=== PATIENT | female | born 1940 | race Caucasian/White ===

== ENCOUNTER → 2016-06-14 | Outpatient (CLI) | payer MEDICARE, OTHER ==
[2014-07-18 10:13] VITALS: BP 143/65
[~2016-06-14] MED LIST: ACET325T9 PO; AMLO10TA2 PO; BISA10SU55 RC; CALC600T4 PO; CELE200C PO; CHOL10002 PO; DOCU100C5 PO; FEXO180T81 PO; FLUT16SP NS; MULT-246 PO; OMEP20TA63 PO; OXYB5TAB7 PO; PROP150T2 PO; SIMV10TA3 PO; VENL75TA PO; VITA1000 PO; VITA1TAB19 PO
--- NOTE | 2016-06-14 14:37 | CARD ---
APPROVED REPORT EXAM: Two-dimensional and M-mode echocardiogram with Doppler and color Doppler. Other Information Quality : Good INDICATION SVT 2D DIMENSIONS RVDd2.1 (2.9-3.5cm)Left Atrium(2D)3.3 (1.6-4.0cm) IVSd0.7 (0.7-1.1cm)Aortic Root(2D)3.1 (2.0-3.7cm) LVDd4.8 (3.9-5.9cm)LVOT Diameter2.0 (1.8-2.4cm) PWd0.8 (0.7-1.1cm)LVDs2.3 (2.5-4.0cm) FS (%) 30.0 %SV88.2 ml LVEF(%)60.0 (>50%) Aortic Valve AoV Peak Cooper.111.5cm/sAoV VTI19.5cm AO Peak GR.5.0mmHgLVOT Peak Cooper.116.5cm/s AO Mean GR.3mmHgAVA (VMAX)3.24cm2 MARTÍN (VTI)3.30cm2 Mitral Valve MV E Olzaxhfz83.5cm/sMV DECEL ZEGH965wy MV A Nglhzcvb54.4cm/sE/A Ratio0.8 Tricuspid Valve TR P. Drtyxfqf988au/sRAP RIJDDHWV9lvKm TR Peak Gr.61pgVpATYM19tcLm Pulmonary Vein S1 Fyomyivb15.1cm/sD2 Kwndjpew71.2cm/s PVa yngtolit85bdvq LEFT VENTRICLE The left ventricle is normal size. There is normal left ventricular wall thickness. The left ventricu lar systolic function is normal and the ejection fraction is within normal range. The Ejection Fracti on is 60-65%. There is normal LV segmental wall motion. Transmitral Doppler flow pattern is Grade I-a bnormal relaxation pattern. RIGHT VENTRICLE The right ventricle is normal size. The right ventricular systolic function is normal. ATRIA The left atrium size is normal. The right atrium size is normal. The interatrial septum is intact wit h no evidence for an atrial septal defect or patent foramen ovale as noted on 2-D or Doppler imaging. AORTIC VALVE The aortic valve is calcified but opens well. Doppler and Color Flow revealed no significant aortic r egurgitation. There is no significant aortic valvular stenosis. MITRAL VALVE The mitral valve is thickened but opens well. There is no evidence of mitral valve prolapse. There is no mitral valve stenosis. Doppler and Color Flow revealed no mitral valve regurgitation noted. TRICUSPID VALVE The tricuspid valve is normal in structure and function. Doppler and Color Flow revealed trace tricus pid regurgitation. The PA pressure was estimated at 21 mmHg. There is no pulmonary hypertension. Ther e is no tricuspid valve stenosis. PULMONIC VALVE The pulmonary valve is normal in structure and function. Doppler and Color Flow revealed trace pulmon ic valvular regurgitation. There is no pulmonic valvular stenosis. GREAT VESSELS The aortic root is normal in size. The ascending aorta is normal in size. The IVC is normal in size a nd collapses >50% with inspiration. PERICARDIAL EFFUSION There is no evidence of significant pericardial effusion. Critical Notification Critical Value: No <Conclusion> The left ventricular systolic function is normal and the ejection fraction is within normal range. Th e Ejection Fraction is 60-65%. There is normal LV segmental wall motion.
== END | disposition home or self-care (01) ==
LOC: ECHO 09:35
PROVIDERS: ATTEND Internal Medicine Cardiovascular Disease
DX: I47.1 Supraventricular tachycardia (principal); I37.1 Nonrheumatic pulmonary valve insufficiency; I07.1 Rheumatic tricuspid insufficiency
CPT/HCPCS: 93306

== ENCOUNTER → 2017-01-23 | Outpatient (CLI) | payer MEDICARE, OTHER ==
[2014-07-18 10:13] VITALS: BP 143/65
[~2017-01-23] MED LIST changes: +DOCU100C28 PO; -DOCU100C5 PO
--- NOTE | 2017-01-23 15:13 | RAD ---
ATE: 01/23/2017 EXAM: MAMMO BELLA SCREENING BILATERAL Bilateral digital screening mammography to include digital breast tomosynthesis (3D mammography) HISTORY: Screening study. COMPARISON: Comparison studies are dated 01/25/2016 and 01/15/2016. This study was interpreted with the benefit of Computerized Aided Detection (CAD). FINDINGS: Digital MLO and CC mammograms of both breasts were obtained. Additionally digital breast tomosynthesis (3D mammography) images of both breasts in the MLO and CC projections were performed. Comparison studies are dated 01/25/2016 and 01/15/2016. The breast parenchyma is heterogeneously dense which can obscure a lesion on mammography (breast density code C). No spiculated mass is seen. No malignant appearing calcification or area of architectural distortion is noted. Benign-appearing calcifications are seen scattered throughout both breasts. Digital breast tomosynthesis images demonstrate no spiculated mass or malignant appearing calcification. Since the previous examination there has been no significant interval change. IMPRESSION: First category 1, negative. There is no mammographic evidence of malignancy. Routine yearly screening mammography is recommended for follow-up. BI-RADS CATEGORY: 1 NEGATIVE RECOMMENDED FOLLOW-UP: 12M 12 MONTH FOLLOW-UP PQRS compliance statement: Patient information was entered into a reminder system with a target due date 01/23/2018 for the next mammogram. Mammography is a sensitive method for finding small breast cancers, but it does not detect them all and is not a substitute for careful clinical examination. A negative mammogram does not negate a clinically suspicious finding and should not result in delay in biopsying a clinically suspicious abnormality. "Our facility is accredited by the [employer] Mammography [employer]."
== END | disposition home or self-care (01) ==
LOC: KCIC MAMMO 10:42
PROVIDERS: ATTEND Family Medicine
DX: Z12.31 Encounter for screening mammogram for malignant neoplasm of breast (principal)
CPT/HCPCS: 77063; G0202; 77067

== ENCOUNTER → 2018-02-06 | Outpatient (CLI) | payer MEDICARE, OTHER ==
[2014-07-18 10:13] VITALS: BP 143/65
[~2018-02-06] MED LIST changes: -AMLO10TA2 PO; +AMLO10TA6 PO
--- NOTE | 2018-02-06 17:20 | KCIC ---
EXAM: Bilateral digital screening mammogram with tomosynthesis. HISTORY: 77-year-old female presents for screening mammography. TECHNIQUE: Full-field digital craniocaudal and mediolateral oblique 2D and 3D tomosynthesis images of both breasts are obtained for evaluation. Computer aided detection with Vend[employer] software version 9.3 was applied. COMPARISON: 01/25/2016 BREAST PARENCHYMAL DENSITY: Level C - Heterogeneously dense. FINDINGS: There is no new suspicious mass, microcalcification or region of architectural distortion. IMPRESSION: BI-RADS Category 2: Benign finding(s). RECOMMENDATION: Annual mammography is recommended. If your mammogram demonstrates that you have dense breast tissue, which could hide abnormalities, and if you have other risk factors for breast cancer that have been identified, you might benefit from supplemental screening tests that may be suggested by your ordering physician. Dense breast tissue, in and of itself, is a relatively common condition. This information is not provided to cause undue concern, but rather to raise your awareness and to promote discussion with your physician regarding the presence of other risk factors, in addition to dense breast tissue. A report of your mammography results will be sent to you and your physician. You should contact your physician if you have any questions or concerns regarding this report. Mammography is a sensitive method for finding small breast cancers, but it does not detect them all and is not a substitute for careful clinical examination. A negative mammogram does not negate a clinically suspicious finding and should not result in delay in biopsying a clinically suspicious abnormality. PQRS compliance statement - Patient information was entered into a reminder system with a target due date for the next mammogram. "Our facility is accredited by the [employer] Mammography [employer]." Electronically signed by: Marilyn Anderson MD (02/06/2018 5:17 PM) [facility]
== END | disposition home or self-care (01) ==
LOC: KCIC MAMMO 13:48
PROVIDERS: ATTEND Family Medicine
DX: Z12.31 Encounter for screening mammogram for malignant neoplasm of breast (principal); I10 Essential (primary) hypertension; E78.5 Hyperlipidemia, unspecified; Z80.0 Family history of malignant neoplasm of digestive organs; K21.9 Gastro-esophageal reflux disease without esophagitis; F32.9 Major depressive disorder, single episode, unspecified; Z88.6 Allergy status to analgesic agent; Z90.89 Acquired absence of other organs
CPT/HCPCS: 77063; 77067

== ENCOUNTER → 2018-03-12 | Outpatient (CLI) | payer MEDICARE, OTHER ==
[2014-07-18 10:13] VITALS: BP 143/65
--- NOTE | 2018-03-12 12:51 | RAD ---
MR#: [id number] Date of Study: 03/12/2018 Ordering Physician: TANNA CASTRO, Referring Physician: [place] GAY Tech: BRIANA Gerardo ARRT (José Miguel) (N) APPROVED REPORT Test Type: Exercise Stress Nurse/Tech: Anisha Christian RN Test Indications: Atypical chest pain Cardiac History: Family history,, Hypertension Medications: See Electronic Medical Record Medical History: See Electronic Medical Record Resting ECG: SB Resting Heart Rate: 54 bpm Resting Blood Pressure: 134/63mmHg Pretest Chest Pain: No chest pain Nurse/Tech Notes S1,S2 and lungs are clear to auscultation. Consent: The procedure was explained to the patient in lay terms. Informed consent was witnessed. Ash eout was entered into [employer]. History and Stress Test performed by BRIANA Gerardo ARRT (R) (N) Stress Symptoms Fatigue POST EXERCISE Reason for Termination: Reached target heart rate, Fatigue Target HR: Yes Max HR: 242 bpm 200% of Maximum Predicted HR: 242 bpm Exercise duration: 8:41 min:sec, 3 Stage Exercise capacity: 10.0METs Max Blood Pressure: 141/54mmHg Blood Pressure response to exercise: Normal blood pressure response during stress. Heart Rate response to exercise: WNL Chest Pain: No. Arrhythmia: No. ST Change: Yes. elevation in aVR and V1, and depression in II and III during exercise INTERPRETATION Stress EKG Conclusion: Baseline EKG showed sinus rhythm. ST depression and T wave inversion inferior leads at peak stress suspicious for ischemia. No arrhythmias. Imaging Protocol IMAGE PROTOCOL: Rest Tc-99m/stress Tc-99m 1 day Rest: Stress: Viability: Radiopharm.Tc99m MngybzfflFs88v Sestamibi Dose11.5mCi 33.2mCi Img Date 03/12/2018 03/12/2018 Inj-Img Mbdg49oyg. 60min. Rest Admin Site:IV - Right AntecubitalAdministrator:BRIANA Gerardo ARRT (José Miguel)(N) Stress Admin Site: IV - Right AntecubitalAdministrator: Marilyn Caputo, RT (R)(N) STRESS DATA End Diast. Vol.29.0mlAv. Heart Rate73.0bpm End Syst. Vol.6.0mlCO Index BSA1.7L/min Myocardial Mass66.0gEject. Wiejxmgv23.0% Stress Rates Pk. Fill Rate3.60EDV/secLVtime Pk. Fill 275.04msec Pk. Empty Rate5.39ESV/secLVtime Pk. Jyngf049.56msec /3 Pk. Fill0.04EDV/sec Stress Scores Regional WT0.00Summed WT0.00 Regional WM0.00Summed WM15.00 Study quality was good. Left Ventricular size was Normal at Rest and Stress. Lung uptake was Normal. Left Ventricular ejection fraction is 79%. The rest and stress images show normal perfusion, normal contraction and thickening. LV Perf. Quant 17 Seg. SSS0.00 17 Seg. SRS0.00 17 Seg. SDS0.00 Stress Defect Extent (% LAD)0.00Rest Defect Extent (% LAD)0.00Rev. Defect Extent (% LAD)0.00 Stress Defect Extent (% LCX) 0.00Rest Defect Extent (% LCX)0.00Rev. Defect Extent (% LCX)0.00 Stress Defect Extent (% RCA)0.00Rest Defect Extent (% RCA)0.00Rev. Defect Extent (% RCA)0.00 Stress Defect Extent (% KERRI)0.00Rest Defect Extent (% KERRI)0.00Rev. Defect Extent (% KERRI)0.00 Conclusion 1. Treadmill exercise cardioisotope stress test did not show any evidence of ischemia or infarct. 2. Normal left ventricular systolic function with ejection fraction calculated at 79%. 3. Low risk for cardiac events. Signed by : Matthew Saini, Electronically Approved : 03/12/2018 12:50:09
== END | disposition home or self-care (01) ==
LOC: NM 07:48
PROVIDERS: ATTEND Internal Medicine Cardiovascular Disease
DX: R07.89 Other chest pain (principal); Z82.49 Family history of ischemic heart disease and other diseases of the circulatory system
CPT/HCPCS: 78452; 93017; 96374; 96376; A9500

== ENCOUNTER → 2018-08-13 | Outpatient (CLI) | payer MEDICARE, OTHER ==
[2014-07-18 10:13] VITALS: BP 143/65
[~2018-08-13] MED LIST changes: -AMLO10TA6 PO; +AMLO10TA8 PO
--- NOTE | 2018-08-13 10:42 | RAD ---
MR#: [id number] Date of Study: 08/13/2018 Ordering Physician: TANNA CASTRO, Referring Physician: TANNA CASTRO, Tech: DANYEL Rodríguez, RDMS, RTR APPROVED REPORT Patient Location: OUT-PATIENT Laterality:Bilateral Indications CVA/TIA: Risk Factors Hypertension: rt leg weakness, vision changes Doppler Spectral Velocity Analysis Right Left pCCA 120/21 cm/spCCA 90/19 cm/s mCCA 119/25 cm/smCCA 90/17 cm/s dCCA 72/15 cm/sdCCA 81/19 cm/s ECA 79/ cm/sECA 71/ cm/s pICA 50/10 cm/spICA 61/14 cm/s Nacho 67/18 cm/smICA 50/13 cm/s dICA 57/17 cm/sdICA 118/30 cm/s ICA/CCA 0.56ICA/CCA 1.31 Findings Grayscale images of the bilateral common carotid, external and internal carotid vessels reveal minima l intimal hyperplasia. Spectral waveforms and color Doppler of the bilateral internal carotid vessels are overall suggestive of 0 to less than 50% stenosis based on velocity criteria. No focal obstruction is noted. The bilateral vertebral velocities are antegrade. Critical Notification Critical Value: No <Conclusion> No significant carotid occlusive disease. Signed by : Tanna Castro, Electronically Approved : 08/13/2018 10:41:37
== END | disposition home or self-care (01) ==
LOC: US 07:50
PROVIDERS: ATTEND Internal Medicine Cardiovascular Disease
DX: G45.9 Transient cerebral ischemic attack, unspecified (principal); I10 Essential (primary) hypertension; R53.1 Weakness
CPT/HCPCS: 93880

== ENCOUNTER → 2018-09-20 | Outpatient (CLI) | payer MEDICARE, OTHER ==
[2014-07-18 10:13] VITALS: BP 143/65
--- NOTE | 2018-09-20 16:21 | KCIC ---
MRI of the brain without contrast 09/20/2018 Clinical History: TIA. Near syncopal episode with acute right leg heaviness in June. Technique: Unenhanced T1-weighted sagittal and axial, T2-weighted axial and coronal and FLAIR, gradient echo and diffusion-weighted axial images of the brain were obtained. Findings: No previous imaging studies are available for comparison. There is generalized parenchymal atrophy. Patchy, confluent and multiple small focal areas of increased signal intensity are seen within the periventricular and subcortical white matter of both cerebral hemispheres along with the balta on the FLAIR and T2-weighted images consistent with areas of small vessel ischemic disease. A 4 mm old area of infarction is seen involving the left cerebellar hemisphere. No acute parenchymal abnormality is seen. No extra-axial fluid collection is seen. There is no MRI evidence of acute ischemia/infarction. Mild mucosal thickening in seen scattered throughout the paranasal sinuses. There are minimal bilateral mastoid effusions. Normal flow voids are seen within the major vascular structures surrounding the brain parenchyma. Impression: No acute parenchymal abnormality is seen. Electronically signed by: Ranjit Nash MD (09/20/2018 4:18 PM) [facility]
== END | disposition home or self-care (01) ==
LOC: KCIC MRI 09:10
PROVIDERS: ATTEND Psychiatry & Neurology Neurology with Special Qualifications in Child Neurology
DX: G45.9 Transient cerebral ischemic attack, unspecified (principal)
CPT/HCPCS: 70551

== ENCOUNTER → 2018-10-08 | Outpatient (CLI) | payer MEDICARE, OTHER ==
[2014-07-18 10:13] VITALS: BP 143/65
--- NOTE | 2018-10-08 15:35 | CARD ---
MR#: [id number] Date of Study: 10/08/2018 Ordering Physician: HERMAN COTTO, Referring Physician: HERMAN COTTO, Tech: Lucero Akins RDCS APPROVED REPORT EXAM: Two-dimensional and M-mode echocardiogram with Doppler and color Doppler. Other Information Quality : Good INDICATION CVA/TIA 2D DIMENSIONS RVDd1.9 (2.9-3.5cm)Left Atrium(2D)3.5 (1.6-4.0cm) IVSd0.8 (0.7-1.1cm)Aortic Root(2D)2.9 (2.0-3.7cm) LVDd5.1 (3.9-5.9cm)LVOT Diameter2.1 (1.8-2.4cm) PWd0.6 (0.7-1.1cm)LVDs4.0 (2.5-4.0cm) FS (%) 22.7 %SV57.3 ml LVEF(%)55.0 (>50%) Aortic Valve AoV Peak Cooper.134.4cm/sAoV VTI26.6cm AO Peak GR.7.2mmHgLVOT Peak Cooper.99.0cm/s LVOT VTI 22.08cmAO Mean GR.3mmHg MARTÍN (VMAX)2.45hr6NOG (VTI)2.84cm2 Mitral Valve MV E Ixvcoxaf31.0cm/sMV DECEL ARLQ121oh MV A Grwkdjrp87.1cm/sMV TPN96au E/A Ratio0.8MVA (PHT)2.92cm2 TDI E/Lateral E'6.9E/Medial E'8.5 Tricuspid Valve TR P. Irxwmwev020ui/sRAP BHAYZFMQ4pwBu TR Peak Gr.31saRqDCJY80reTt Pulmonary Vein S1 Tlqsofde88.5cm/sD2 Gxlrqfhk92.9cm/s LEFT VENTRICLE The left ventricle is normal size. There is normal left ventricular wall thickness. The left ventricu lar systolic function is normal and the ejection fraction is within normal range. The Ejection Fracti on is 55%. There is normal LV segmental wall motion. Transmitral Doppler flow pattern is Grade I-abno rmal relaxation pattern. RIGHT VENTRICLE The right ventricle is normal size. The right ventricular systolic function is normal. ATRIA The left atrium size is normal. The right atrium size is normal. The interatrial septum is intact wit h no evidence for an atrial septal defect or patent foramen ovale as noted on 2-D or Doppler imaging. AORTIC VALVE The aortic valve is calcified but opens well. Doppler and Color Flow revealed no significant aortic r egurgitation. There is no significant aortic valvular stenosis. MITRAL VALVE The mitral valve is calcified but opens well. There is no evidence of mitral valve prolapse. There is no mitral valve stenosis. Doppler and Color-flow revealed trace mitral regurgitation. TRICUSPID VALVE The tricuspid valve is normal in structure and function. Doppler and Color Flow revealed trace tricus pid regurgitation. The PA pressure was estimated at 23 mmHg. There is no tricuspid valve stenosis. PULMONIC VALVE The pulmonic valve is not well visualized. Doppler and Color Flow revealed trace pulmonic valvular re gurgitation. There is no pulmonic valvular stenosis. GREAT VESSELS The aortic root is normal in size. The ascending aorta is normal in size. The IVC is normal in size a nd collapses >50% with inspiration. PERICARDIAL EFFUSION There is no evidence of significant pericardial effusion. Critical Notification Critical Value: No <Conclusion> The left ventricular systolic function is normal and the ejection fraction is within normal range. Th e Ejection Fraction is 55%. There is normal LV segmental wall motion. Signed by : Raymundo López, Electronically Approved : 10/08/2018 15:35:21
== END | disposition home or self-care (01) ==
LOC: ECHO 09:02
PROVIDERS: ATTEND Psychiatry & Neurology Neurology with Special Qualifications in Child Neurology
DX: I08.0 Rheumatic disorders of both mitral and aortic valves (principal); G45.9 Transient cerebral ischemic attack, unspecified
CPT/HCPCS: 93306

== ENCOUNTER → 2019-03-19 | Outpatient (CLI) | payer MEDICARE, OTHER ==
[2014-07-18 10:13] VITALS: BP 143/65
[~2019-03-19] MED LIST changes: +OXYB5TAB10 PO; -OXYB5TAB7 PO
--- NOTE | 2019-03-19 15:18 | KCIC ---
Bilateral digital screening mammograms with 3-D tomosynthesis: Reason for examination: Routine screening. Comparison is made to previous studies dated back to 01/15/2016. Bilateral mammograms in CC and oblique projections were obtained with 2-D imaging and 3-D tomosynthesis imaging on a Siemens Inspiration unit and reviewed on the workstation. Interpretation was made with the benefit of CAD. The skin and nipples show no abnormalities. No abnormal axillary lymph nodes are seen. The breast parenchyma is extremely dense. (Breast density: Category D.) There are no dominant masses, suspicious calcifications or architectural distortion. Benign calcifications are present. Impression: No evidence of malignancy. Recommend routine screening. Your patient's mammogram demonstrates that she has dense breast tissue (breast density category C or D), which could hide abnormalities, and if she has other risk factors for breast cancer that have been identified, she might benefit from supplemental screening tests that may be suggested by you as her ordering physician. Dense breast tissue, in and of itself, is a relatively common condition. Therefore, this information is not provided to cause undue concern, but rather to raise your awareness and to promote discussion with your patient regarding the presence of other risk factors, in addition to dense breast tissue. Your patient's mammography results will be sent to her. BI-RAD Category 2: Benign. "Our facility is accredited by the [employer] Mammography [employer]." This patient's information has been entered into a reminder system for the patient to be notified with the results of her examination and a target date for the next mammogram. Electronically signed by: Fern Patel MD (03/19/2019 3:15 PM) [facility]
== END | disposition home or self-care (01) ==
LOC: KCIC MAMMO 10:19
PROVIDERS: ATTEND Family Medicine
DX: Z12.31 Encounter for screening mammogram for malignant neoplasm of breast (principal); N64.89 Other specified disorders of breast
CPT/HCPCS: 77063; 77067

== ENCOUNTER → 2019-12-31 | Outpatient (CLI) | payer MEDICARE, OTHER ==
[2014-07-18 10:13] VITALS: BP 143/65
[~2019-12-31] MED LIST changes: -CALC600T4 PO; +CALC600T6 PO; +SIMV10TA15 PO; -SIMV10TA3 PO
--- NOTE | 2019-12-31 11:45 | CARD ---
MR#: [id number] Date of Study: 12/31/2019 Ordering Physician: TANNA CASTRO, Referring Physician: TANNA CASTRO, Tech: APPROVED REPORT Indication: Tachybrady, arrhythmia, CVA Procedure details: 79-year-old woman presented to the office for planned loop recorder implantation in the setting of pr ior history of TIA, recurrent arrhythmia history/palpitations and tachybradycardia syndrome. The left chest was prepped and draped in usual sterile fashion. 1% lidocaine was instilled in the pa rasternal space. A 0.5 inch incision was made and through this a prespecified loop recorder tunnelin g tool was used to make a subcutaneous tunnel and the Medtronic loop recorder was implanted without a ny difficulty. The incision was closed with Steri-Strips. No acute complications noted Loop recorder SN: [id number] <Conclusion> 1. Successful insertion of a medtronic loop recorder for SVT. Signed by : Tanna Castro, Electronically Approved : 12/31/2019 11:45:28
== END | disposition home or self-care (01) ==
LOC: LINQ 10:48
PROVIDERS: ATTEND Internal Medicine Cardiovascular Disease
DX: I63.89 Other cerebral infarction (principal); I49.5 Sick sinus syndrome; I49.8 Other specified cardiac arrhythmias; Z86.73 Personal history of transient ischemic attack (TIA), and cerebral infarction without residual deficits; Z79.899 Other long term (current) drug therapy; Z88.5 Allergy status to narcotic agent; Z88.8 Allergy status to other drugs, medicaments and biological substances
CPT/HCPCS: 33285; C1764

== ENCOUNTER → 2020-03-23 | Outpatient (CLI) | payer MEDICARE, OTHER ==
[2014-07-18 10:13] VITALS: BP 143/65
[~2020-03-23] MED LIST changes: +AMLO-187 PO; -AMLO10TA8 PO
--- NOTE | 2020-03-23 11:03 | RAD ---
EXAMINATION: MRI RIGHT SHOULDER WITHOUT IV CONTRAST CLINICAL HISTORY: Chronic right shoulder pain TECHNIQUE: Multiplanar multisequential images obtained through the shoulder without intravenous contrast. COMPARISON: Right shoulder radiographs 03/20/2020 FINDINGS: TENDONS: 3 tendon anchors in the greater tuberosity and multifocal susceptibility artifact in the soft tissues predominantly along the anterior aspect of the shoulder related to prior rotator cuff repair. - Supraspinatus: Small full-thickness defect in the posterior superior of the tendon and articular sided irregularity involving nearly the full width of the tendon, possibly related to postsurgical changes versus small full-thickness fissure and low-grade articular sided fraying. Moderate tendinosis. - Infraspinatus: Articular sided irregularity involving nearly the full width of the tendon, possibly related to postsurgical changes versus high-grade articular sided fraying. Moderate tendinosis. - Subscapularis: Low-grade interstitial tearing in the superior fibers and mild tendinosis. - Teres Minor: Intact. - Biceps Tendon: The long head biceps tendon is intact and appropriately located. MUSCLES: Muscle bulk and signal intensity are within normal limits. LABRUM: Circumferential labral degeneration without discrete tear. GLENOHUMERAL JOINT: - Joint Fluid: Small to moderate joint effusion with synovitis extending into the subacromial/subdeltoid bursa. - Cartilage: No full-thickness chondral defect visualized. ACROMIOCLAVICULAR JOINT: Marked hypertrophic degenerative changes. BONES/MARROW: No evidence of acute fracture or suspicious marrow replacing process. OTHER: No other significant abnormality identified. IMPRESSION: No definite recurrent full-thickness rotator cuff tear. Postsurgical changes versus small full-thickness fissure in the supraspinatus tendon and supraspinatus and infraspinatus articular sided fraying as described. Electronically signed by: Rhys Hilario DO (03/23/2020 11:00 AM) [id number]
== END ==
LOC: MRI 13:49
PROVIDERS: ATTEND Orthopaedic Surgery
DX: M19.011 Primary osteoarthritis, right shoulder (principal); M25.411 Effusion, right shoulder
CPT/HCPCS: 73221

== ENCOUNTER → 2020-04-28 | Outpatient (CLI) | payer MEDICARE, OTHER ==
[2014-07-18 10:13] VITALS: BP 143/65
--- NOTE | 2020-04-28 15:19 | KCIC ---
Bilateral digital screening mammograms with 3-D tomosynthesis: Reason for examination: Routine screening. Comparison is made to previous studies dated back to 12/29/2014. Bilateral mammograms in CC and oblique projections were obtained with 2-D imaging and 3-D tomosynthesis imaging on a Siemens Inspiration unit and reviewed on the workstation. Interpretation was made with the benefit of CAD. The skin and nipples show no abnormalities. No abnormal axillary lymph nodes are seen. The breast parenchyma is extremely dense. (Breast density: Category D.) There continues be a small focus of parenchymal asymmetry anterior laterally in the right breast seen only on cc view which is stable. There are no new dominant masses, suspicious calcifications or architectural distortion. Benign calcifications are present. Impression: No evidence of malignancy. Recommend routine screening. Your patient's mammogram demonstrates that she has dense breast tissue (breast density category C or D), which could hide abnormalities, and if she has other risk factors for breast cancer that have been identified, she might benefit from supplemental screening tests that may be suggested by you as her ordering physician. Dense breast tissue, in and of itself, is a relatively common condition. Therefore, this information is not provided to cause undue concern, but rather to raise your awareness and to promote discussion with your patient regarding the presence of other risk factors, in addition to dense breast tissue. Your patient's mammography results will be sent to her. BI-RAD Category 2: Benign. "Our facility is accredited by the [employer] Mammography Program." This patient's information has been entered into a reminder system for the patient to be notified with the results of her examination and a target date for the next mammogram. Electronically signed by: eFrn Patel MD (04/28/2020 3:17 PM) [id number]
== END ==
LOC: KCIC MAMMO 09:23
PROVIDERS: ATTEND Family Medicine
DX: Z12.31 Encounter for screening mammogram for malignant neoplasm of breast (principal); N64.89 Other specified disorders of breast
CPT/HCPCS: 77063; 77067

== ENCOUNTER → 2020-12-31 | Outpatient (CLI) | payer MEDICARE, OTHER ==
[2014-07-18 10:13] VITALS: BP 143/65
[~2020-12-31] MED LIST changes: -CALC600T6 PO; +CALC600T60 PO
--- NOTE | 2020-12-31 10:34 | KCIC ---
MRI of the cervical spine without contrast 12/31/2020 CLINICAL HISTORY: Neck pain with right arm numbness for several years. TECHNIQUE: Unenhanced T1-weighted, T2-weighted and inversion recovery sagittal and gradient echo and T2-weighted axial images of the cervical spine were obtained. FINDINGS: Very mild lateral curvature of the cervical spine is seen convex to the right. There is sli ght reversal of the normal cervical lordosis. Degenerative signal changes and loss of height are seen involving all of the disks of the cervical spine. Degenerative signal changes are seen within the ma rrow surrounding these discs. Slight prominence of the central spinal canal is seen throughout the ce rvical spinal cord. There is no evidence of a Chiari I malformation. No focal area of abnormal signal intensity is seen involving the cervical spinal cord. At the C2-3 disc space there is a minimal generalized disc bulge. Degenerative changes are seen invol ving the uncovertebral and facet joints bilaterally. These findings when combined do not result in si gnificant central spinal canal or neural foraminal stenosis. At the C3-4 disc space there is a mild generalized disc bulge. Degenerative changes are seen involvin g the uncovertebral and facet joints, left greater than right. These findings when combined do not re sult in significant central spinal canal stenosis. Moderate left neural foraminal stenosis is seen. T he right neural foramen is patent. At the C4-5 disc space there is a mild to moderate generalized disc bulge. Superimposed on this disc bulge is a focal central disc osteophyte complex. This measures 4 mm in AP diameter. Degenerative tolu nges are seen involving the uncovertebral and facet joints, right greater than left. These findings w hen combined efface the anterior CSF without resulting in significant central spinal canal stenosis. Moderate to severe right greater than left neural foraminal stenosis is seen. At the C5-6 disc space there is a moderate generalized disc bulge. Degenerative changes are seen invo lving the uncovertebral and facet joints, left greater than right. These findings efface the anterior posterior CSF resulting in mild central spinal canal stenosis without evidence of cord impingement. Moderate to severe left greater than right neural foraminal stenosis is seen. At the C6-7 disc space there is a mild generalized disc bulge. Degenerative changes are seen involvin g the uncovertebral and facet joints, left greater than right. These findings when combined do not re sult in significant central spinal canal stenosis. Moderate left neural foraminal stenosis is seen. T he right neural foramen is patent. At the C7-T1 disc space there is a mild generalized disc bulge. This is eccentric to the right. Degen erative changes are seen involving the uncovertebral and facet joints bilaterally. These findings do not result in significant central spinal canal or neural foraminal stenosis. IMPRESSION: Degenerative changes are seen throughout the cervical spine. These findings result in mil d central spinal canal stenosis at C5-6 without evidence of cord impingement. Moderate left neural fo raminal stenosis is seen at C3-4 and C6-7. Moderate to severe left greater than right neural foramina l stenosis is seen at C4-5 and C5-6. Electronically signed by: Ranjit Nash MD (12/31/2020 10:31 AM) [id number]
== END ==
LOC: KCIC MRI 09:19
PROVIDERS: ATTEND Orthopaedic Surgery
DX: M47.813 Spondylosis without myelopathy or radiculopathy, cervicothoracic region (principal); M50.23 Other cervical disc displacement, cervicothoracic region; M48.02 Spinal stenosis, cervical region; M43.8X2 Other specified deforming dorsopathies, cervical region; M12.811 Other specific arthropathies, not elsewhere classified, right shoulder; M25.78 Osteophyte, vertebrae
CPT/HCPCS: 72141

== ENCOUNTER → 2021-01-12 | Outpatient (CLI) | payer MEDICARE, OTHER ==
[2014-07-18 10:13] VITALS: BP 143/65
--- NOTE | 2021-01-13 08:28 | RAD ---
CLINICAL INDICATION: SAMI GOLDMAN, who is 80 years of age, presents for imaging evaluation of a region of right breast pain COMPARISON: Prior mammographic imaging dating 04/28/2020 TECHNIQUE: Diagnostic views of the right breast were obtained, utilizing digital technique. BREAST COMPOSITION: The breast tissue is heterogenously dense, which could obscure detection of small masses. MAMMOGRAM FINDINGS: There are no suspicious masses, microcalcifications, or architectural distortion to suggest malignanc y in the right breast. Benign type calcifications are seen. The visualized axilla appears unremarkable. ULTRASOUND FINDINGS: Targeted ultrasound of the patient area of concern was performed. Parenchymal tissue of normal echotexture is present. IMPRESSION: 1. No mammographic evidence of malignancy in either breast. RECOMMENDATION: In the absence of new clinical symptoms or change in physical exam, annual screening mammography is r ecommended BIRADS 2: BENIGN Electronically signed by: Igor Simon MD (01/13/2021 8:26 AM) [id number]
== END ==
LOC: MAMMO 09:56
PROVIDERS: ATTEND Family Medicine
DX: N64.4 Mastodynia (principal)
CPT/HCPCS: 76641; 77066; G0279; 77062

== ENCOUNTER → 2021-05-03 | Outpatient (CLI) | payer MEDICARE, OTHER ==
[2014-07-18 10:13] VITALS: BP 143/65
[~2021-05-03] MED LIST changes: +DENO60DI SQ; +DILT120C99 PO; +IOHEXOL 180 MG/ML 10 ML VIAL. ONE; +LINZESS145 MCG PO; +LISI10TA16 PO; +ONDA-84 PO; +TURM500C4 PO; +VENL150C PO; +methylPREDNISolone ACETATE 40 MG/ML VIAL. ONE; +methylPREDNISolone ACETATE 80 MG/ML VIAL. ONE
--- NOTE | 2021-05-03 10:24 | PDOC4 ---
Procedure Note: ICD 10 Code: ICD 10 Code: M51.12 M50.30 M4 8.02 Procedure Note: Patient was consented for cervical epidural steroid injection with fluoroscopic guidance. Risks were discussed including but not limited to: Bleeding, infection, possibility of epidural hematoma and subsequent neurological compromise, dural puncture, headaches, spinal cord and/or nerve damage, side effects of steroid medication, and poor results regarding pain control. Patient understands and wished to proceed. Procedure cervical epidural steroid injection at the C6-7 level, using local anesthetic under sterile prep and drape using C-arm fluoroscopic guidance under local anesthesia medications injected ;120 mg Depo-Medrol +5 mL normal saline and 2 mL contrast; condition at discharge is stable patient tolerated procedure well. and had no complications ENRIQUE EDGE MD May 03, 2021 10:24
--- NOTE | 2021-05-03 10:24 | PDOC1 ---
INITIAL PAIN CONSULT DATE OF SERVICE: DOS: DATE: 05/03/21 TIME: 10:18 CHIEF COMPLAINT: Chief Complaint: Neck and right upper extremity pain HISTORY OF PRESENT ILLNESS: 80-year-old female presents with history of pain base the neck and right upper extremity for about 1 year gradually increasing [place] with any one specific injury or accident but is getting worse with repetitive motions activity weightbearing reaching patient reports she is very active and not using her hands and has many projects that she does around the home patient reports the pain is getting worse in the base the neck and right shoulder right biceps triceps also in the forearm and hand with numbness and tingling in the thumb and first finger on the right side patient reports its radiating tingling intermittent intensity aching in the neck shooting in the arm intermittent intensity patient reports it worse with repetitive motions reaching overhead with her right arm as well as some significant shoulder pain as well with rotator injury many years ago on the right side as well patient reports it wakes her from sleep occasionally but not every night does not affect her ability to walk and can affect her bowel or bladder control but without any incontinence patient reports she is done physical therapy also chiropractic treatment exercise all which help but only temporarily patient is taking Tylenol as well as Celebrex both which do decrease the pain marginally but without long-lasting effects. Patient rates her pain and disability rating from a 0-10 10 being worst is a 3 with family home responsibilities 1 with recreation 0 social activity with occupation and self-care 0 sexual behavior life support activities. Patient have MRI scan cervical spine show degenerative changes with spinal canal stenosis C5-6 without evidence of cord impingement moderate left neuroforaminal stenosis C3-4 and C6-7 with moderate to severe left greater than right neuroforaminal stenosis at C4-5 and C5-6. PAST MEDICAL HISTORY: PMH: Arthritis, gastropathy reflux, hyperlipidemia, hypertension, SVTs, squamous cell carcinoma PREVIOUS SURGERIES: Past Surgical Hx: Total abdominal hysterectomy, ovarian cystectomy, carpal tunnel repair bilaterally, foot surgery, right finger surgery, right rotator cuff repair, left knee scope, trigger finger repair CURRENT MEDICATIONS: Current Meds: Active Scripts Medications Dose Route/Sig Max Daily Dose Days Date Category Ondansetron Hcl 4 Mg Tablet 1 Tab PO PRN Q6HRS 05/03/21 Reported Turmeric 500 mg Capsule (Turmeric/Turmeric Root Extract) 1 Each Capsule 2 Each PO DAILY 05/03/21 Reported Linzess (Linaclotide) 145 Mcg Capsule 72 Mcg PO DAILY07 05/03/21 Reported Effexor Xr (Venlafaxine Hcl) 150 Mg Cap.er.24h 1 Cap PO DAILY 05/03/21 Reported Prolia (Denosumab) 60 Mg/1 Ml Disp.syrin 60 Mg SQ TWICE YEAR 05/03/21 Reported Lisinopril 10 Mg Tablet 1 Tab PO DAILY 05/03/21 Reported Diltiazem 24HR Cd (Diltiazem Hcl) 120 Mg Cap.er.24h 1 Cap PO DAILY 30 05/03/21 Reported Tylenol (Acetaminophen) 325 Mg Tablet 325 Mg PO 06/26/15 Reported Oxybutynin Chloride 5 Mg Tablet 5 Mg PO TID 06/26/15 Reported Celebrex (Celecoxib) 200 Mg Capsule 200 Mg PO BID 30 06/26/15 Reported Propafenone Hcl 150 Mg Tablet 150 Mg PO PRN PRN 06/26/15 Reported Docusate Sodium 100 Mg Capsule 200 Mg PO 06/26/15 Reported Vitamin D (Cholecalciferol (Vitamin D3)) 1,000 Unit Tablet 1,000 Unit PO DAILY 07/18/14 Reported Vitamin E 1,000 Unit Capsule 1,000 Unit PO DAILY 07/18/14 Reported Simvastatin 10 Mg Tablet 10 Mg PO TWICE A WEEK 07/18/14 Reported Calcium (Calcium Carbonate) 600 Mg Tablet 600 Mg PO BID 07/18/14 Reported Multi-Vitamin Daily (Multivitamin) 1 Each Tablet 1 Each PO DAILY 07/18/14 Reported Cheyanne Allergy (Fexofenadine Hcl) 180 Mg Tablet 1 Tab PO DAILY 07/18/14 Reported Venlafaxine Hcl 75 Mg Tablet 75 Mg PO DAILY 07/18/14 Reported ALLERGIES; Allergies: Coded Allergies: Iodinated Contrast Media (Verified Allergy, Intermediate, rash, severe illness, vomiting--premedication does NOT help, 06/26/15) NSAIDS (Non-Steroidal Anti-Inflamma (Verified Allergy, Intermediate, depression, 06/26/15) acetaminophen (Verified Allergy, Intermediate, itching, rash, vomiting, 06/26/15) adhesive tape (Verified Allergy, Intermediate, blisters, rash, 06/26/15) chlorpheniramine (Verified Allergy, Intermediate, severe nausea and vomiting, 06/26/15) codeine (Verified Allergy, Intermediate, vomiting, 06/26/15) hydrocodone (Verified Allergy, Intermediate, itching, rash, vomiting, 06/26/15) oxycodone (Verified Allergy, Intermediate, vomiting, 06/26/15) povidone-iodine (Verified Allergy, Intermediate, rash--premedication does NOT help, 06/26/15) propoxyphene (Verified Allergy, Intermediate, vomiting, 06/26/15) yellow dye (Verified Allergy, Intermediate, depression, 06/26/15) Uncoded Allergies: METAL (Allergy, Intermediate, swelling and bleeding, rash, 06/26/15) non-gold FAMILY HISTORY: Family Hx: Heart disease SOCIAL HISTORY: Social Hx: Patient topic alcohol does not smoke not use any illegal illicit recreational drugs is single lives locally in [facility], 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 PHYSICAL EXAM: VS: Blood pressure is 132/66 pulse 73 respirations 16 temperature 98.1 F weight is 132 pounds height is 61 inches PE: PHYSICAL EXAMINATION: GENERAL: The patient is awake, alert, oriented, appropriate, very pleasant in demeanor HEENT: Shows normocephalic, atraumatic. Extraocular movements are intact and symmetrical. Oral cavity: Mucous membranes moist and pink. NECK: Shows anterior throat supple without palpable lymphadenopathy noted. Swallow reflex symmetrical. CHEST: Shows normal on inspection. Breath sounds are clear bilaterally, distant no rales or rhonchi. HEART: Shows S1, S2 clear. No murmurs auscultated. ABDOMEN: Soft, nontender, nondistended, obese. No palpable organomegaly is noted. BACK: Shows spine grossly in the midline. Normal-appearing cervical lordotic curvature. Cervical paraspinous muscles show symmetrical with inspection, palpation some mild tenderness but only diffusely without significant radiation or asymmetry no trigger points patient shows full rotation motion cervical spine both laterally as well as extension flexion without significant difficulty. There is slightly increased thoracic kyphosis, some minor flattening of the lumbar lordotic curvature. EXTREMITIES: Upper extremities show deep tendon reflexes 2+ in the biceps and triceps tendons. 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 Peripheral pulses are 2+ radial. No peripheral edema is noted bilaterally. Upper extremities are warm and dry to touch, equal in color and appearance. Shoulder shrug strong intact without loss of strength on resistance bilaterally. SKIN: Shows warm and dry, good turgor. No edema. No sores, rashes or bruising throughout. IMPRESSION: Impression: 80-year-old female with approximate 1 year history of pain base of neck right upper extremity radicular fashion. MRI scan cervical spine as noted Arthritis Hypertension Plan: Options were discussed with patient including serve medical managements physical therapies and interventional techniques. Patient likes interventional techniques. We discussed a cervical epidural steroid injections description as well as anatomical models to describe the procedure. Risks were discussed including but not limited to: Bleeding, infection, possibility of epidural hematoma and subsequent neurological compromise, dural puncture, headaches, spinal cord and/or nerve damage, side effects of steroid medication, and poor results regarding pain control. Patient understands and wished to proceed. Patient return to the clinic in approximate 2 weeks for follow-up, was counseled return appointment, activity level, and side effects beware of. Procedure cervical epidural steroid injection at the C6-7 level, using local anesthetic under sterile prep and drape using C-arm fluoroscopic guidance under local anesthesia medications injected ;120 mg Depo-Medrol +5 mL normal saline and 2 mL contrast; condition at discharge is stable patient tolerated procedure well. and had no complications ENRIQUE EDGE MD May 03, 2021 10:24
== END | disposition home or self-care (01) ==
LOC: PNCL 08:32
PROVIDERS: ATTEND Anesthesiology
DX: M50.10 Cervical disc disorder with radiculopathy, unspecified cervical region (principal); M48.02 Spinal stenosis, cervical region; M79.601 Pain in right arm; M54.12 Radiculopathy, cervical region; M19.90 Unspecified osteoarthritis, unspecified site; K21.9 Gastro-esophageal reflux disease without esophagitis; I10 Essential (primary) hypertension; E78.00 Pure hypercholesterolemia, unspecified; E11.9 Type 2 diabetes mellitus without complications; F32.9 Major depressive disorder, single episode, unspecified; Z85.828 Personal history of other malignant neoplasm of skin; Z79.899 Other long term (current) drug therapy; Z98.890 Other specified postprocedural states; Z88.8 Allergy status to other drugs, medicaments and biological substances; Z90.710 Acquired absence of both cervix and uterus
CPT/HCPCS: 62321; J1030; J1040; Q9965

== ENCOUNTER → 2021-05-17 | Outpatient (CLI) | payer MEDICARE, OTHER ==
[2014-07-18 10:13] VITALS: BP 143/65
--- NOTE | 2021-05-17 10:21 | PDOC4 ---
Procedure Note: ICD 10 Code: ICD 10 Code: M54.12 M50.30 M4 8.02 Procedure Note: Patient was consented for cervical epidural steroid injection with fluoroscopic guidance. Risks were discussed including but not limited to: Bleeding, infection, possibility of epidural hematoma and subsequent neurological compromise, dural puncture, headaches, spinal cord and/or nerve damage, side effects of steroid medication, and poor results regarding pain control. Patient understands and wished to proceed. Procedure cervical epidural steroid injection at the C6-7 level, using local anesthetic under sterile prep and drape using C-arm fluoroscopic guidance under local anesthesia medications injected ;120 mg Depo-Medrol +5 mL normal saline and 2 mL contrast; condition at discharge is stable patient tolerated procedure well. and had no complications ENRIQUE EDGE MD May 17, 2021 10:21
--- NOTE | 2021-05-17 10:21 | PDOC ---
Progress Note - Pain Clinic Date of Service: DOS: DATE: 05/17/21 TIME: 10:17 Diagnosis: Dx: Cervical radiculopathy with cervical degenerative disc disease and cervical spinal stenosis History or Present Illness: HPI: 80-year-old female returns for follow-up status post cervical epidural steroid injection x1. Patient reports about 50% improvement in the arm and 20% provement in the shoulder but increase activities greater ease and comfort is been doing much more with work activities home activities travel with greater ease and comfort patient reports he is sleeping better at night as well generally is not awakening from sleep at this time patient reports still some pain in the base the neck and shoulder on the right side into the arm and into the forearm as well as into the wrist and hand on the right side. Patient reports is much better than it was she is increasing her activity feels that her strength is just as good as it has been describes the pain as aching and dull in the shoulder and arm burning in the base the neck some constant pain with repetitive motions reaching over her head with her right hand as well as reaching with weightbearing and repetitive weightbearing motions. Patient reports no loss of function no dropping items no fine motor movement difficulties as well. Patient reports no bowel or bladder incontinence Physical Exam: VS: Blood pressure is 136/70 pulse 73 respirations are 18 temperature is 98.3 F weight is 130 pounds PE: PHYSICAL EXAMINATION: GENERAL: The patient is awake, alert, oriented, appropriate, very pleasant in demeanor HEENT: Shows normocephalic, atraumatic. Extraocular movements are intact and symmetrical. Oral cavity: Mucous membranes moist and pink. NECK: Shows anterior throat supple without palpable lymphadenopathy noted. Swallow reflex symmetrical. CHEST: Shows normal on inspection. Breath sounds are clear bilaterally. HEART: Shows S1, S2 clear. No murmurs auscultated. ABDOMEN: Soft, nontender, nondistended. No palpable organomegaly is noted. BACK: Shows spine grossly in the midline. Normal-appearing cervical lordotic curvature. Cervical paraspinous muscles show symmetrical with inspection, on palpation some moderate tenderness diffusely diffusely without significant ra diation. Patient shows full rotation motion cervical spine with lateral as well as full extension full forward flexion without difficulty. There is slightly increased thoracic kyphosis, some flattening of the lumbar lordotic curvature. No tenderness over the spinous processes, sacrum or sacroiliac regions. EXTREMITIES: Upper extremities show deep tendon reflexes 2+ in the biceps and triceps tendons. 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 Peripheral pulses are 2+ radial. No peripheral edema is noted bilaterally. Upper extremities are warm and dry to touch, equal in color and appearance. SKIN: Shows warm and dry, good turgor. No edema. No sores, rashes or bruising throughout. Procedure: Procedure: Options discussed with the patient. Patient chart was reviewed as her current medication regimen updated current view of systems updated today as well. We will proceed with a cervical epidural steroid injection today with fluoroscopic guidance. Risks were discussed including but not limited to: Bleeding, infection, possibility of epidural hematoma and subsequent neurological compromise, dural puncture, headaches, spinal cord and/or nerve damage, side effects of steroid medication, and poor results regarding pain control. Patient understands and wished to proceed. Patient return to clinic in approximately 2 weeks for follow-up, was counseled as to return appointment, activity level, and side effect to be aware of. Medication Injected: Med Injected: Procedure cervical epidural steroid injection at the C6-7 level, using local anesthetic under sterile prep and drape using C-arm fluoroscopic guidance under local anesthesia medications injected ;120 mg Depo-Medrol +5 mL normal saline and 2 mL contrast; condition at discharge is stable patient tolerated procedure well. and had no complications Condition at Discharge: Condition at Discharge: Condition at discharge stable, patient tolerated the procedure well and had no complications. ENRIQUE EDGE MD May 17, 2021 10:21
== END | disposition home or self-care (01) ==
LOC: PNCL 09:34
PROVIDERS: ATTEND Anesthesiology
DX: M50.10 Cervical disc disorder with radiculopathy, unspecified cervical region (principal); M48.02 Spinal stenosis, cervical region; M54.12 Radiculopathy, cervical region; I10 Essential (primary) hypertension; E78.00 Pure hypercholesterolemia, unspecified; K21.9 Gastro-esophageal reflux disease without esophagitis; M19.90 Unspecified osteoarthritis, unspecified site; E11.9 Type 2 diabetes mellitus without complications; F32.9 Major depressive disorder, single episode, unspecified; Z85.828 Personal history of other malignant neoplasm of skin; Z90.710 Acquired absence of both cervix and uterus; Z98.890 Other specified postprocedural states; Z79.899 Other long term (current) drug therapy; Z91.041 Radiographic dye allergy status; Z88.8 Allergy status to other drugs, medicaments and biological substances
CPT/HCPCS: 62321; J1030; J1040; Q9965; 64483

== ENCOUNTER → 2021-08-03 | Outpatient (CLI) | payer MEDICARE, OTHER ==
[2014-07-18 10:13] VITALS: BP 143/65
[~2021-08-03] MED LIST changes: -IOHEXOL 180 MG/ML 10 ML VIAL. ONE; -methylPREDNISolone ACETATE 40 MG/ML VIAL. ONE; -methylPREDNISolone ACETATE 80 MG/ML VIAL. ONE
--- NOTE | 2021-08-03 13:20 | CARD ---
MR#: [id number] Date of Study: 08/03/2021 Ordering Physician: TANNA CASTRO, Referring Physician: TANNA CASTRO, Tech: Nazia Trejo [facility] APPROVED REPORT EXAM: Two-dimensional and M-mode echocardiogram with Doppler and color Doppler. Other Information Quality : AverageHR: 64bpm Rhythm : NSR INDICATION RISK FACTORS Hypertension Hyperlipidemia 2D DIMENSIONS RVDd3.2 (2.9-3.5cm)Left Atrium(2D)3.6 (1.6-4.0cm) IVSd1.0 (0.7-1.1cm)Aortic Root(2D)3.1 (2.0-3.7cm) LVDd4.1 (3.9-5.9cm)LVOT Diameter1.7 (1.8-2.4cm) PWd0.9 (0.7-1.1cm)LVDs2.5 (2.5-4.0cm) FS (%) 38.8 %SV51.3 ml LVEF(%)69.7 (>50%) Aortic Valve AoV Peak Cooper.112.1cm/sAoV VTI25.5cm AO Peak GR.5.0mmHgLVOT Peak Cooper.116.9cm/s AO Mean GR.3mmHgAVA (VMAX)2.48cm2 Mitral Valve MV E Lgfcwlih31.9cm/sMV DECEL [id number] MV A Cwkduiue31.4cm/sE/A Ratio0.9 Pulmonary Valve PV Peak Amgpzqjx42.8cm/s Tricuspid Valve TR P. [id number]/sTR Peak Gr.18mmHg LEFT VENTRICLE The left ventricle is normal size. There is normal left ventricular wall thickness. The left ventricu lar systolic function is normal and the ejection fraction is within normal range. Estimated ejection fraction 60%. There is normal LV segmental wall motion. Transmitral Doppler flow pattern is Grade I-a bnormal relaxation pattern. RIGHT VENTRICLE The right ventricle is normal size. There is normal right ventricular wall thickness. The right ventr icular systolic function is normal. ATRIA The left atrium size is normal. The right atrium size is normal. The interatrial septum is intact wit h no evidence for an atrial septal defect or patent foramen ovale as noted on 2-D or Doppler imaging. AORTIC VALVE The aortic valve is normal in structure and function with mild calcification. Doppler and Color Flow revealed no significant aortic regurgitation. There is no significant aortic valvular stenosis. MITRAL VALVE The mitral valve is normal in structure and function. There is no evidence of mitral valve prolapse. There is no mitral valve stenosis. Doppler and Color-flow revealed trace mitral regurgitation. TRICUSPID VALVE The tricuspid valve is normal in structure and function. Doppler and Color Flow revealed no tricuspid valve regurgitation noted. There is no tricuspid valve stenosis. PULMONIC VALVE Doppler and Color Flow revealed no pulmonic valvular regurgitation. There is no pulmonic valvular edgardo nosis. GREAT VESSELS The aortic root is normal in size. The ascending aorta is normal in size. The IVC is normal in size a nd collapses >50% with inspiration. PERICARDIAL EFFUSION There is no evidence of significant pericardial effusion. Critical Notification Critical Value: No <Conclusion> The left ventricular systolic function is normal and the ejection fraction is within normal range. E stimated ejection fraction 60%. There is normal LV segmental wall motion. Signed by : Tanna Castro, Electronically Approved : 08/03/2021 13:20:07
== END ==
LOC: ECHO 09:07
PROVIDERS: ATTEND Internal Medicine Cardiovascular Disease
DX: I35.1 Nonrheumatic aortic (valve) insufficiency (principal); I47.1 Supraventricular tachycardia
CPT/HCPCS: 93306; C8929

== ENCOUNTER → 2021-08-04 | Outpatient (CLI) | payer MEDICARE, OTHER ==
[2014-07-18 10:13] VITALS: BP 143/65
[~2021-08-04] MED LIST changes: +DEXAMETHASONE PRES.FREE 10 MG/ML VIAL. ONE; +IOHEXOL 180 MG/ML 10 ML VIAL. ONE
--- NOTE | 2021-08-04 13:11 | PDOC ---
Progress Note - Pain Clinic Date of Service: DOS: DATE: 08/04/21 TIME: 12:24 Diagnosis: Dx: Cervical radiculopathy with cervical degenerative disease and cervical spinal stenosis History or Present Illness: HPI: 80-year-old female returns for follow-up status post cervical epidural steroid traction last seen May 17, 2021 patient did very well with near 100% improvement for 2 months the pain returning now in the right upper extremity base the neck and shoulder patient reports also pain in the scapula which is new for her she had not had this before but also did radiate the right arm and to the level of the hand and fingers with numbness and tingling, also cramping and aching in the hand and fingers as well. Patient reports no recent injury or accident with the pain is getting worse and has been disturbing her sleep occasionally but not most nights patient reports pain is a 7 on scale 10 is worse 3 on average of 0 at its least over the past week and is a 3 today. Patient describes no loss of function but significant fatigability of the right upper extremity and again more pain in the right scapular region posterior shoulder. Physical Exam: VS: Blood pressure is 136/72 pulse 67 respirations are 18 temperature is 98.2 F height 5 feet 1 inches weight is 132 pounds. PE: PHYSICAL EXAMINATION: GENERAL: The patient is awake, alert, oriented, appropriate, very pleasant and demeanor HEENT: Shows normocephalic, atraumatic. Extraocular movements are intact and symmetrical. Oral cavity: Mucous membranes moist and pink. Dentition is intact. NECK: Shows anterior throat supple without palpable lymphadenopathy noted. Swallow reflex symmetrical. CHEST: Shows normal on inspection. Breath sounds are clear bilaterally. HEART: Shows S1, S2 clear. No murmurs auscultated. ABDOMEN: Soft, nontender, nondistended. No palpable organomegaly is noted. BACK: Shows spine grossly in the midline. Normal-appearing cervical lordotic curvature. Cervical paraspinous muscles show symmetrical inspection, on palpation some moderate tenderness diffusely bilaterally only in the inferior aspect the cervical paraspinous musculature, slightly more on the right than the left, but without atrophy hypertrophy or asymmetry and no trigger points identified. There is slightly increased thoracic kyphosis, some minor flattening of the lumbar lordotic curvature. EXTREMITIES: Upper extremities show deep tendon reflexes 2+ in the Hysept and triceps tendons. Motor exam is 4 on a scale of 5 with right tile shader, biceps and triceps flexion and 5/5 on the left. Peripheral pulses are 2+ radial. No peripheral edema is noted bilaterally. Upper extremities are warm and dry to touch, equal in color and appearance. SKIN: Shows warm and dry, good turgor. No edema. No sores, rashes or bruising throughout. Procedure: Procedure: Options were discussed with the patient. Patient's old chart reviews her current medication regimen updated current review of systems updated today as well. We will proceed with a cervical epidural steroid injection today with fluoroscopic guidance.Risks were discussed including but not limited to: Bleeding, infection, possibility of epidural hematoma and subsequent neurological compromise, dural puncture, headaches, spinal cord and/or nerve damage, side effects of steroid medication, and poor results regarding pain control. Patient understands and wished to proceed. Patient will return to the clinic in approximately 2 weeks for follow-up, was counseled as to return ap pointment, active level, and side effects to be aware of. Medication Injected: Med Injected: Procedure cervical epidural steroid injection at the C6-7 level, using local anesthetic under sterile prep and drape using C-arm fluoroscopic guidance under local anesthesia medications injected ; 20 mg dexamethasone +5 mL normal saline and 2 mL contrast; condition at discharge is stable patient tolerated procedure well. and had no complications Condition at Discharge: Condition at Discharge: Condition at discharge stable, patient tolerated procedure well and had no complications. ENRIQUE EDGE MD Aug 04, 2021 13:11
--- NOTE | 2021-08-04 13:15 | PDOC4 ---
Procedure Note: ICD 10 Code: ICD 10 Code: M54.12 M50.30 M 48.02 Procedure Note: Patient was consented for cervical epidural steroid injection with fluoroscopic guidance. Risks were discussed including but not limited to: Bleeding, infection, possibility of epidural hematoma and subsequent neurological compromise, dural puncture, headaches, spinal cord and/or nerve damage, side effects of steroid medication, and poor results regarding pain control. Patient understands and wished to proceed. Procedure cervical epidural steroid injection at the C6-7 level, using local anesthetic under sterile prep and drape using C-arm fluoroscopic guidance under local anesthesia medications injected ; 20 mg dexamethasone +5 mL normal saline and 2 mL contrast; condition at discharge is stable patient tolerated procedure well. and had no complications ENRIQUE EDGE MD Aug 04, 2021 13:15
== END | disposition home or self-care (01) ==
LOC: PNCL 10:46
PROVIDERS: ATTEND Anesthesiology
DX: M50.10 Cervical disc disorder with radiculopathy, unspecified cervical region (principal); M48.02 Spinal stenosis, cervical region; M54.12 Radiculopathy, cervical region; I10 Essential (primary) hypertension; E78.00 Pure hypercholesterolemia, unspecified; E11.9 Type 2 diabetes mellitus without complications; K21.9 Gastro-esophageal reflux disease without esophagitis; M19.90 Unspecified osteoarthritis, unspecified site; F32.9 Major depressive disorder, single episode, unspecified; Z85.828 Personal history of other malignant neoplasm of skin; Z79.899 Other long term (current) drug therapy; Z98.890 Other specified postprocedural states; Z88.5 Allergy status to narcotic agent; Z88.8 Allergy status to other drugs, medicaments and biological substances
CPT/HCPCS: 62321; J1100; Q9965